=== PATIENT | female | born 1995 | race African-American/Black ===

== ENCOUNTER 2025-02-04 12:44 | Emergency (ER) | payer OTHER ==
[2025-02-04] MEDS ORDERED: Ketorolac Tromethamine 30 MG (1 mL) VIAL ONE (14:29)
== END 2025-02-04 15:59 | disposition home or self-care (01) ==
LOC: ERS 12:44
DX: J45.901 Unspecified asthma with (acute) exacerbation (principal); Z79.51 Long term (current) use of inhaled steroids
CPT/HCPCS: 71045; 84484; 93005; 96372; J1885; J7620